=== PATIENT | male | born 1955 | race American Indian/Alaskan Native ===

== ENCOUNTER 2016-09-28 10:29 | Inpatient (IN) ==
[2016-08-25 16:48] LABS: Basophils # (Auto) 0 K/mcL (0.0-0.3); Basophils % (Auto) 0.4 % (0.0-2.0); Eosinophils # (Auto) 0.1 K/mcL (0.0-0.7); Eosinophils % (Auto) 1.1 % (0.0-7.0); Granulocytes % (Auto) 73.4 % (38.0-78.0); Lymphocytes # (Auto) 1.7 K/mcL (1.5-4.8); Lymphocytes % (Auto) 19.3 % (15.5-49.0); Mean Cell Volume 87.5 fL (80.0-100.0); Mean Corpuscular HGB Conc 32.9 g/dL (31.0-36.0); Mean Corpuscular Hemoglobin 28.7 pg (26.0-34.0); Monocytes # (Auto) 0.5 K/mcL (0.1-0.9); Monocytes % (Auto) 5.8 % (1.0-12.0); Platelet Count 255 K/mcL (140-440); RBC 5.49 M/mcL (4.50-5.90); Red Cell Distribution Width 14.8 % (11.5-14.5)
[2016-08-25 17:01] LABS: Blood Urea Nitrogen 15 mg/dl (6-20)
[2016-08-25 18:50] LABS: Appearance,Urine CLEAR; Bilirubin,Urine NEG (NEG); Color,Urine YELLOW; Glucose,Urine (UA) NEGATIVE (NEG); Leukocyte Esterase,Urine NEG /uL (NEG); Nitrate,Urine NEG (NEG); Protein,Urine NEG (NEG); Specific Gravity,Urine 1.017 (1.000-1.035); Urine Blood NEG mg/dL (<0.03); Urobilinogen,Urine NEG (NEG)
[2016-09-22 12:26] LABS: Basophils # (Auto) 0 K/mcL (0.0-0.3); Basophils % (Auto) 0.5 % (0.0-2.0); Eosinophils # (Auto) 0.1 K/mcL (0.0-0.7); Eosinophils % (Auto) 0.7 % (0.0-7.0); Granulocytes % (Auto) 73.7 % (38.0-78.0); Lymphocytes # (Auto) 1.4 K/mcL (1.5-4.8); Lymphocytes % (Auto) 19.1 % (15.5-49.0); Mean Cell Volume 87.6 fL (80.0-100.0); Mean Corpuscular HGB Conc 33.4 g/dL (31.0-36.0); Mean Corpuscular Hemoglobin 29.2 pg (26.0-34.0); Monocytes # (Auto) 0.4 K/mcL (0.1-0.9); Platelet Count 253 K/mcL (140-440); RBC 5.68 M/mcL (4.50-5.90)
[2016-09-22 12:46] LABS: Appearance,Urine CLEAR; Bilirubin,Urine NEG (NEG); Color,Urine YELLOW; Glucose,Urine (UA) NEGATIVE (NEG); Leukocyte Esterase,Urine NEG /uL (NEG); Nitrate,Urine NEG (NEG); Protein,Urine NEG (NEG); Specific Gravity,Urine 1.008 (1.000-1.035); Urine Blood NEG mg/dL (<0.03); Urobilinogen,Urine NEG (NEG)
[2016-09-22 13:01] LABS: Blood Urea Nitrogen 10 mg/dl (6-20)
[~2016-09-28 10:29] MED LIST: CELECOXIB 200 MG CAPSULE PO SCH; KETOROLAC 30 MG, ROPIVACAINE HCL/PF 49.5 ML, EPINEPHrine 0.5 MG, 0.9 % SODIUM CHLORIDE ... IJ ONE; PREGABALIN 75 MG CAPSULE PO SCH; oxyCODONE 10 MG TAB.ER.12H PO SCH
[2016-09-28] MEDS ORDERED: 0.9 % SODIUM CHLORIDE 250 ML IV SCH (10:45)
[2016-09-28] MEDS ORDERED: ceFAZolin 1 GM VIAL IV SCH (13:30)
[2016-09-28] MEDS ORDERED: LIDOCAINE HCL/PF 100 MG/5 ML SYRINGE IV ONE (13:55)
[2016-09-28] MEDS ORDERED: GLYCOPYRROLATE 0.2 MG/ML VIAL IV ONE (13:55)
[2016-09-28] MEDS ORDERED: MIDAZOLAM 5 MG/5 ML VIAL IV ONE (13:55)
[2016-09-28] MEDS ORDERED: PHENYLEPHRINE 10 MG/ML VIAL IV ONE (13:55)
[2016-09-28] MEDS ORDERED: ONDANSETRON 4 MG/2 ML VIAL IV ONE (13:55)
[2016-09-28] MEDS ORDERED: ePHEDrine 50 MG/ML AMPUL IV ONE (13:55)
[2016-09-28] MEDS ORDERED: TRANEXAMIC ACID 1,000 MG/10 ML VIAL IV ONE (13:55)
[2016-09-28] MEDS ORDERED: PROPOFOL 200 MG/20 ML VIAL IV ONE (13:55)
[2016-09-28] MEDS ORDERED: ROPIVACAINE HCL/PF 30 ML VIAL IJ ONE (13:55)
[2016-09-28] MEDS ORDERED: DEXAMETHASONE 10 MG/ML VIAL IV ONE (13:55)
[2016-09-28] MEDS ORDERED: KETOROLAC 30 MG, ROPIVACAINE HCL/PF 49.5 ML, EPINEPHrine 0.5 MG, 0.9 % SODIUM CHLORIDE ... IJ ONE (15:02)
[2016-09-28] MEDS ORDERED: ePHEDrine 50 MG/ML AMPUL IV PRN (15:22)
[2016-09-28] MEDS ORDERED: NALOXONE HCL 0.4 MG/ML VIAL IV PRN (15:22)
[2016-09-28] MEDS ORDERED: METHOCARBAMOL 1,000 MG/10 ML VIAL IV PRN (15:22)
[2016-09-28] MEDS ORDERED: MEPERIDINE 50 MG/ML SYRINGE IM PRN (15:22)
[2016-09-28] MEDS ORDERED: FLUMAZENIL 0.1 MG/ML ML IV PRN (15:22)
[2016-09-28] MEDS ORDERED: PROMETHAZINE 25 MG/ML VIAL IV PRN (15:22)
[2016-09-28] MEDS ORDERED: BENZOCAINE/MENTHOL 1 LOZENGE PO PRN ×2 (15:22→16:03)
[2016-09-28] MEDS ORDERED: MEPERIDINE 25 MG/ML SYRINGE IV PRN (15:22)
[2016-09-28] MEDS ORDERED: fentaNYL 100 MCG/2 ML VIAL IV PRN (15:22)
[2016-09-28] MEDS ORDERED: IPRATROPIUM/ALBUTEROL 3 ML AMPUL.NEB NEB PRN (15:22)
[2016-09-28] MEDS ORDERED: LACTATED RINGERS 250 ML IV PRN (15:22)
[2016-09-28] MEDS ORDERED: HYDROmorphone 2 MG/ML SYRINGE IV PRN (15:22)
[2016-09-28] MEDS ORDERED: diphenhydrAMINE 50 MG/ML VIAL IV PRN (15:22)
[2016-09-28] MEDS ORDERED: ONDANSETRON 4 MG/2 ML VIAL IV PRN ×2 (15:22→16:03)
[2016-09-28] MEDS ORDERED: PROMETHAZINE 25 MG/ML VIAL IM PRN (15:22)
[2016-09-28] MEDS ORDERED: LACTATED RINGERS 1,000 ML IV SCH (15:30)
[2016-09-28] MEDS ORDERED: POLYETHYLENE GLYCOL 3350 17 GM PACKET PO PRN (16:03)
[2016-09-28] MEDS ORDERED: MAGNESIUM HYDROXIDE 30 ML ORAL.SUSP PO PRN (16:03)
[2016-09-28] MEDS ORDERED: FLEETS ADULT ENEMA PR PRN (16:03)
[2016-09-28] MEDS ORDERED: TRANEXAMIC ACID 1,000 MG/10 ML VIAL IV SCH (16:03)
[2016-09-28] MEDS ORDERED: BISACODYL 10 MG SUPP.RECT PR PRN (16:03)
--- NOTE | 2016-09-28 16:03 | Brief Operative Note ---
Date of procedure: 09/28/16 Pre-op diagnosis: Left knee DJD Post-op diagnosis: same Procedure: Robotic assisted total knee arthroplasty Grafts/Implants: Yes (Sean 7 CR femur, 6 tibia, 9mm tibial insert, 39 patella ) Anesthesia: spinal, GLMA Findings: severe DJD Complications: none Surgeon: Waqas Harris Deputy Sheriff/Investigator: Pratik Hernandez Estimated blood loss (cc): 30 Specimens Removed/Pathology: none sent Condition: stable Disposition: PACU
--- NOTE | 2016-09-28 17:20 | XRay Report ---
HISTORY: Reason for Exam:Post-op total knee FINDINGS: There is a well-positioned total knee prosthesis. Lateral view reveals a 3 x 6 mm bone chip posterior to the prosthetic tibial plateau. There also appears to be a nondisplaced fracture line seen on the lateral film involving the posterior margin of the metaphyseal region of the femur. This cannot be confirmed on the AP view.. IMPRESSION: Possible fracture along the posterior metaphyseal border of the distal femur Interpreted and Authenticated by: Reynold Cutler 09/28/16
[2016-09-28] MEDS: KETOROLAC 30 MG/ML VIAL IV SCH ×2 (18:12→23:45)
[2016-09-28] MEDS: 0.9 % SODIUM CHLORIDE 1,000 ML IV SCH (18:12)
[2016-09-28] MEDS: HYDROcodone/APAP 10/325MG TABLET PO PRN ×2 (18:27→20:46)
[2016-09-28] MEDS: DOCUSATE SODIUM 100 MG CAPSULE PO SCH (20:42)
[2016-09-28] MEDS: ASPIRIN 325 MG ENTERIC COATED TABLET PO SCH (20:42)
[2016-09-28] MEDS: ceFAZolin 1 GM VIAL IV SCH (20:46)
[2016-09-28] MEDS: 0.9 % SODIUM CHLORIDE 10 ML SYRINGE IV SCH (20:56)
[2016-09-28] MEDS ORDERED: ATORVASTATIN 20 MG TABLET PO SCH (21:00)
[2016-09-28] MEDS ORDERED: SENNOSIDES 1 TABLET PO SCH (21:00)
[2016-09-29] MEDS: 0.9 % SODIUM CHLORIDE 1,000 ML IV SCH ×2 (00:11→08:16)
[2016-09-29] MEDS: ceFAZolin 1 GM VIAL IV SCH (04:50)
[2016-09-29] MEDS: HYDROcodone/APAP 10/325MG TABLET PO PRN ×2 (04:51→08:14)
[2016-09-29] MEDS: KETOROLAC 30 MG/ML VIAL IV SCH (05:42)
[2016-09-29] MEDS: 0.9 % SODIUM CHLORIDE 10 ML SYRINGE IV SCH (05:43)
--- NOTE | 2016-09-29 07:46 | Discharge Summary ---
Ortho Discharge - TKA - Patient Instructions Diet: Regular Diet Activity: activity as tolerated, weight bearing as tolerated Total Knee Protocol: For Total Knee: Start ROM BOB with stationary bike or rocking chair. Work on gaining full extension of knee. Posterior dislocation precautions provided. Hip abductor strengthening and gait training instructions provided. Apply Cryocuff as instructed. Dressing Care: Aquacel Ag - leave on for 5 days Patient Education: Total Knee Replacement (DC) Additional Instructions: Discharge Instructions: Do the exercises at home that physical therapy gave you. Take your prescription, photo ID, insurance cards, and current medication list with you to your first physical therapy appointment. Take your prescription to [facility] any medication or equipment (such as walker, crutches, toilet riser or C.P.M.) Wear comfortable clothing for your physical therapy. Weight bearing as tolerated. You have the Aquacel Ag dressing, leave in place for 7 days then remove. If dressing becomes soiled (turns black), remove and use gauze 4x4 dressing and silvasorb ointment and change daily. Keep incision clean and dry. You may start showering on post op day #2. To avoid constipation while taking any narcotic pain medication, take an over the counter stool softener/laxative. Use your Cryocuff or ice packs as directed, on for 20 minutes at a time throughout the day. This and elevation will help with pain and swelling. Call your physician for fevers above 100.5 or pain not controlled by medication. Your prescriptions are with your discharge information. Some medications were electronically transmitted to your pharmacy of choice. - Follow Up Plan Follow Up Appointments: Waqas Harris MD [Physician] - 10/13/16 10:40 am Disposition: Home, Self-Care Prognosis: Good Rehab Potential: Good - Orders For Discharge Additional Discharge Orders: Physical Therapy at Discharge - TKA Location: Determined By Patient Toilet Riser Discharge Order Location: Determined By Patient Walker Location: Determined By Patient
--- NOTE | 2016-09-29 08:38 | Orthopedic Progress Note ---
Subjective Patient information: Note initiated : 09/29/16 at 8:36 am Service Date, if different from initiated Date: [] Patient: Jose Lira 61 y/o M admitted on 09/28/16 for Left Medial Uni Knee versus Bicompartmental. Chief Complaint: [] Principal diagnosis: s/p L TKA Interval history: pain controlled on po's Objective Vital signs: Vital Signs Temp Pulse Pulse Pulse Resp BP BP 09/29/16 08:05 80 09/29/16 07:10 80 09/29/16 06:36 96.3 F L 20 107/71 09/29/16 03:29 98.3 F 82 12 109/74 09/28/16 23:36 97.6 F 99 H 12 123/85 09/28/16 20:29 93 H 129/88 09/28/16 19:29 93 H 125/90 09/28/16 18:59 91 H 128/84 09/28/16 18:45 09/28/16 18:29 84 149/75 09/28/16 18:14 77 136/83 09/28/16 17:59 72 135/82 09/28/16 17:25 97.2 F 71 16 147/87 09/28/16 17:03 97.1 F 69 20 133/86 09/28/16 16:57 69 15 116/76 09/28/16 16:45 79 20 124/68 09/28/16 16:35 75 19 115/72 09/28/16 16:30 72 18 116/79 09/28/16 16:25 70 19 119/75 09/28/16 16:23 97.6 F 74 20 119/75 09/28/16 10:30 98.0 F 70 16 165/102 Pulse Ox 09/29/16 08:05 09/29/16 07:10 95 09/29/16 06:36 93 09/29/16 03:29 92 09/28/16 23:36 94 09/28/16 20:29 93 09/28/16 19:29 95 09/28/16 18:59 95 09/28/16 18:45 93 09/28/16 18:29 94 09/28/16 18:14 94 09/28/16 17:59 96 09/28/16 17:25 95 09/28/16 17:03 96 09/28/16 16:57 96 09/28/16 16:45 94 09/28/16 16:35 94 09/28/16 16:30 96 09/28/16 16:25 96 09/28/16 16:23 93 09/28/16 10:30 97 Intake and Output 09/28/16 09/29/16 09/29/16 21:59 05:59 13:59 Intake Total 2180 / 2180 1000 / 1000 600 / 600 Output Total 1300 / 1300 975 / 975 Balance 880 / 880 25 / 25 600 / 600 Intake: IV 1700 / 1700 Oral 480 / 480 1000 / 1000 600 / 600 Output: Urine Catheter Amount 700 / 700 Void Amount 500 / 500 975 / 975 Estimated Blood Loss 100 / 100 Other: Weight 250 lb Intake & Output: Intake & Output 09/28/16 09/29/16 09/29/16 21:59 05:59 13:59 Intake Total 2180 / 2180 1000 / 1000 600 / 600 Output Total 1300 / 1300 975 / 975 Balance 880 / 880 25 / 25 600 / 600 Weight 250 lb Intake: IV 1700 / 1700 Oral 480 / 480 1000 / 1000 600 / 600 Output: Urine Catheter Amount 700 / 700 Void Amount 500 / 500 975 / 975 Estimated Blood Loss 100 / 100 Dressing: Yes clean, Yes dry, Yes intact - Labs CBC & BMP: 09/29/16 05:12 09/22/16 10:45 Labs: Orthopedic Labs 09/22/16 08/25/16 10:45 15:15 PT 13.1 13.3 INR 1.0 1.0 09/29/16 09/22/16 08/25/16 05:12 10:45 15:15 Hgb 13.5 16.6 H 15.8 Hct 39.9 L 49.7 48.0 Assessment and Plan (1) S/P total knee arthroplasty POD#1 s/p L TKA- stable -d/c home Status: Acute
[2016-09-29] MEDS: ASPIRIN 325 MG ENTERIC COATED TABLET PO SCH (08:51)
[2016-09-29] MEDS: DOCUSATE SODIUM 100 MG CAPSULE PO SCH (08:52)
--- NOTE | 2016-09-29 09:44 | Operative Note ---
DATE OF OPERATION: 09/28/2016 PREOPERATIVE DIAGNOSIS: Left knee severe osteoarthritis. POSTOPERATIVE DIAGNOSIS: Left knee severe osteoarthritis. PROCEDURE PERFORMED: Left robotic-assisted total knee arthroplasty placing a Sean Triathlon size 7 cruciate retaining femoral component, a size 6 tibial baseplate, a 9 mm X3 tibial insert with a 39 mm patellar button. SURGEON: Waqas Harris MD. POWERHOUSE MECHANIC APPRENTICE: Josh Hernandez PA-C. ANESTHESIA: Spinal plus general. DRAINS: None. SPECIMENS: Bone cuts, which were discarded. BLOOD LOSS: 30 mL. COMPLICATIONS: None. POSTOPERATIVE CONDITION: Stable. INDICATIONS FOR SURGERY: This is a 61-year-old male who has had worsening knee pain to the point of being severe. This was no longer controlled with conservative management and was inhibiting his quality of life. X-rays showed severe [id number] medial compartment osteoarthritis. FINDINGS AT SURGERY: As above. Post implantation showed good limb alignment, patellar tracking, and stability. PROCEDURE IN DETAIL: The patient had been seen preoperatively. Informed consent had been obtained after discussion of risks and benefits of surgery. Risks including, but not limited to, bleeding, possibly requiring transfusion; infection, possibly requiring implant removal and prolonged IV antibiotics; injury to nerves, blood vessels, and other surrounding structures; anesthetic risks; incomplete or no resolution of symptoms; stiffness; pain; clunking; instability; swelling; DVT and pulmonary embolus risks; and the possibility of needing further surgery. He understood these risks and wished to proceed. Correct operative site was marked, and the patient was given spinal anesthesia. He was then taken to the operating room and LMA general given. Left lower extremity was then carefully prepped and draped in normal sterile fashion, and a time-out was performed verifying patient name, operative site, and plan. Esmarch was used to exsanguinate the extremity and tourniquet was inflated to 300 mmHg. A midline incision was made with a scalpel through skin and subcutaneous tissue. Irrisept was irrigated and then a medial parapatellar arthrotomy made. Subperiosteal exposure was done of the anterior medial tibia and the distal anterior cortex of the femur. The retropatellar fat pad was excised. ACL was transected, and the anterior horns of the menisci were removed. Stab incisions were made over the femur and tibia, and drill pins were placed bicortically, two in the femur and two in the tibia, and then our arrays were connected to these. We then checked our hip center of rotation and then medial and lateral malleoli where checked with the green probe. We then placed and double-checked our femoral and tibial check points. We then used the blue probe to do our data points on the femur and tibia. Once this was completed, we then removed osteophytes. We then checked our flexion and extension gaps, then adjusted implants. We had tried to do an extensive MCL release around the corner of the proximal tibia, but we still required 1 degree of varus in the tibia and 3 degrees of varus overall alignment on the femur. Once we had our flexion and extension gaps balanced, we went ahead and used the robotic-assisted saw to make our femoral and tibial cuts. Once this was completed, we used the green probe to identify our external rotation. This size 6 tibia was chosen due to an area anterolaterally that did not have good bone coverage with the 7. We went ahead and marked our external rotation and then placed our 6 tibial trial, pinning this into place and then using a boss reamer and keel punch to prepare. We then elevated the femur and removed posterior osteophytes with a curved osteotome and curet. We then placed the femoral trial, trying to place this flush with the anterolateral part of the femur. This was pinned into place and then the peg holes were drilled. We then placed a 9 insert. The knee was taken into extension. It measured 0 degrees on extension with the robot. We then prepared our patella freehand technique. It initially measured at 28 and after resection we had it down to 18. We then measured him to a 39, which was medialized and holes were drilled. The patellar trial was placed. A lateral facetectomy was performed. We checked our patellar tracking. There was some tilt, and so we did go ahead and do a lateral retinacular release, starting at the superior pole of patella about 1 cm lateral and extending this distal to the joint line. After this, the patella tracked much better. We then went ahead and removed trial implants while definitive implants were opened. We irrigated the tibia and femur with Irrisept. After waiting a minute, we pulse lavaged copiously with saline and antibiotic cement was used to cement the tibia followed by the femur. A 9 insert trial was placed. The knee was taken into extension and the patellar button was cemented. We did use CO2 gun to clean and dry all the cancellous surfaces. While the knee was held in extension, we filled the knee with Irrisept and then injected pain cocktail in the pericapsular and subcutaneous tissues. After waiting a minute we then pulse lavaged copiously with saline while cement hardened. Once it was fully hardened, we flexed the knee up and with an osteotome removed any remaining cement. We did remove the tibial trial. We injected the posterior medial capsule with pain cocktail and then irrigated Irrisept and then impacted the definitive insert. The joint was filled again with Irrisept and taken into 45 degrees flexion. Interrupted #2 FiberWire [id number] were used at the superior quadrant of the patella. The inferior quadrant was closed with interrupted #1 Vicryl [id number]. Running #1 Vicryl was used for patellar tendon and quad tendon, and then Irrisept was used for another irrigation. After a minute we used saline to pulse lavage, and then 2-0 Monocryl was used for subcutaneous and francisca for skin. Xeroform and sterile dressing were applied. Tourniquet was released. The patient was awakened, extubated, and transferred to recovery in stable condition. MELVIN:freddie Job ID: [id number] Doc ID: [id number] Waqas Harris MD
== END 2016-09-29 10:30 | disposition home or self-care (01) | DRG 470 ==
LOC: SUR 10:29 → MEDSUR 17:12
PROVIDERS: ADMIT Orthopaedic Surgery; ATTEND Orthopaedic Surgery

== ENCOUNTER 2019-01-07 06:40 | Inpatient (IN) ==
[2019-01-01 17:15] LABS: Appearance,Urine CLEAR; Bacteria,Urine 0 /hpf (0); Bilirubin,Urine NEG (NEG); Color,Urine YELLOW; Glucose,Urine (UA) NEGATIVE (NEG); Ketones,Urine NEG (NEG); Leukocyte Esterase,Urine NEG /uL (NEG); Mucus,Urine MANY /hpf (0); Nitrate,Urine NEG (NEG); Protein,Urine 30 mg/dL (NEG); Specific Gravity,Urine 1.026 (1.000-1.035); Urine Blood NEG mg/dL (<0.03); Urine Hyaline Cast 5 /lpf (0-2); Urine RBC 1 /hpf (0-1); Urine Squamous Epithelial Cell < 1 /hpf (0-4); Urine WBC 2 /hpf (0-4)
[2019-01-01 20:05] LABS: Basophils # (Auto) 0.1 K/mcL (0.0-0.3); Basophils % (Auto) 0.4 % (0.0-2.0); Eosinophils # (Auto) 0 K/mcL (0.0-0.7); Eosinophils % (Auto) 0.1 % (0.0-7.0); Granulocytes % (Auto) 82.3 % (38.0-78.0); Hematocrit 48.4 % (41.0-55.0); Hemoglobin 16.1 g/dL (13.5-16.5); Lymphocytes # (Auto) 1.5 K/mcL (1.5-4.8); Lymphocytes % (Auto) 13.2 % (15.5-49.0); Mean Cell Volume 86.8 fL (80.0-100.0); Mean Corpuscular HGB Conc 33.3 g/dL (31.0-36.0); Mean Platelet Volume 7.5 fL (7.4-10.4); Monocytes # (Auto) 0.4 K/mcL (0.1-0.9); Platelet Count 296 K/mcL (140-440); RBC 5.58 M/mcL (4.50-5.90); Red Cell Distribution Width 15.7 % (11.5-14.5); WBC 11.3 K/mcL (4.5-11.0)
[2019-01-01 20:36] LABS: Blood Urea Nitrogen 16 mg/dl (8-23); Calcium 9.5 mg/dl (8.6-10.4); Carbon Dioxide 23 mmol/L (22-30); Chloride 102 mmol/L (96-108); Glomerular Filtration Rate 80; Glucose 134 mg/dL (70-105)
[~2019-01-07 06:40] MED LIST changes: +0.9 % SODIUM CHLORIDE 9 ML, KETOROLAC 30 MG, ROPIVACAINE HCL/PF 49.5 ML, EPINEPHrine 0.... IJ SCH; +ACETAMINOPHEN 500 MG TABLET PO SCH; +IPRATROPIUM/ALBUTEROL 3 ML AMPUL.NEB NEB PRN; -KETOROLAC 30 MG, ROPIVACAINE HCL/PF 49.5 ML, EPINEPHrine 0.5 MG, 0.9 % SODIUM CHLORIDE ... IJ ONE; +SCOPOLAMINE 1 PATCH PATCH TOPICAL PRN; +ceFAZolin 2 GM in DEXTROSE 5% IN WATER 50 ML IV SCH
[2019-01-07] MEDS ORDERED: fentaNYL 100 MCG/2 ML VIAL IV ONE (08:50)
[2019-01-07] MEDS ORDERED: ePHEDrine 50 MG/ML AMPUL IV ONE (08:50)
[2019-01-07] MEDS ORDERED: PHENYLEPHRINE 10 MG/ML VIAL IV ONE (08:50)
[2019-01-07] MEDS ORDERED: DEXAMETHASONE 10 MG/ML VIAL IV ONE (08:50)
[2019-01-07] MEDS ORDERED: PROPOFOL 200 MG/20 ML VIAL IV ONE (08:50)
[2019-01-07] MEDS ORDERED: ONDANSETRON 4 MG/2 ML VIAL IV ONE (08:50)
[2019-01-07] MEDS ORDERED: LIDOCAINE HCL/PF 100 MG/5 ML SYRINGE IV ONE (08:50)
[2019-01-07] MEDS ORDERED: TRANEXAMIC ACID 1,000 MG/10 ML VIAL IV ONE ×2 (08:50→09:48)
[2019-01-07] MEDS ORDERED: MIDAZOLAM 5 MG/5 ML VIAL IV ONE (08:50)
[2019-01-07] MEDS ORDERED: ROPIVACAINE HCL/PF 20 ML VIAL IJ ONE (08:50)
[2019-01-07] MEDS ORDERED: GENTAMICIN SULFATE 800 MG/20 ML VIAL IR ONE (09:19)
[2019-01-07] MEDS ORDERED: diphenhydrAMINE 50 MG/ML VIAL IV PRN (09:29)
[2019-01-07] MEDS ORDERED: PROMETHAZINE 25 MG/ML VIAL IV PRN (09:29)
[2019-01-07] MEDS ORDERED: MEPERIDINE 25 MG/ML SYRINGE IV PRN (09:29)
[2019-01-07] MEDS ORDERED: ONDANSETRON 4 MG/2 ML VIAL IV PRN ×2 (09:29→09:48)
[2019-01-07] MEDS ORDERED: NALOXONE HCL 0.4 MG/ML VIAL IV PRN (09:29)
[2019-01-07] MEDS ORDERED: ePHEDrine 50 MG/ML AMPUL IV PRN (09:29)
[2019-01-07] MEDS ORDERED: fentaNYL 100 MCG/2 ML VIAL IV PRN (09:29)
[2019-01-07] MEDS ORDERED: METHOCARBAMOL 1,000 MG/10 ML VIAL IV PRN (09:29)
[2019-01-07] MEDS ORDERED: ATROPINE SULFATE 0.4 MG/ML VIAL IV PRN (09:29)
[2019-01-07] MEDS ORDERED: METOPROLOL TARTRATE 5 MG/5 ML VIAL IV PRN (09:29)
[2019-01-07] MEDS ORDERED: IPRATROPIUM/ALBUTEROL 3 ML AMPUL.NEB NEB PRN (09:29)
[2019-01-07] MEDS ORDERED: FLUMAZENIL 0.1 MG/ML ML IV PRN (09:29)
[2019-01-07] MEDS ORDERED: HYDROmorphone 2 MG/ML VIAL IV PRN ×2 (09:29→09:48)
[2019-01-07] MEDS ORDERED: LACTATED RINGERS 1,000 ML IV SCH (09:30)
[2019-01-07] MEDS ORDERED: HYDROcodone/APAP 10/325MG TABLET PO PRN (09:48)
[2019-01-07] MEDS ORDERED: BENZOCAINE/MENTHOL 1 LOZENGE PO PRN (09:48)
[2019-01-07] MEDS ORDERED: ACETAMINOPHEN 325 MG TABLET PO PRN (09:48)
[2019-01-07] MEDS ORDERED: MAGNESIUM HYDROXIDE 30 ML ORAL.SUSP PO PRN (09:48)
[2019-01-07] MEDS ORDERED: BISACODYL 10 MG SUPP.RECT PR PRN (09:48)
[2019-01-07] MEDS ORDERED: POLYETHYLENE GLYCOL 3350 17 GM PACKET PO PRN (09:48)
[2019-01-07] MEDS ORDERED: FLEETS ADULT ENEMA PR PRN (09:48)
[2019-01-07] MEDS ORDERED: TEMAZEPAM 15 MG CAPSULE PO PRN (09:48)
--- NOTE | 2019-01-07 09:48 | Brief Operative Note ---
Date of procedure: 01/07/19 Pre-op diagnosis: Left knee loosened ligaments Post-op diagnosis: same Procedure: left tka revision one component and spur removal Grafts/Implants: Yes Anesthesia: BENJA Surgeon: Ted Foreman Custodial Officer: Rufino Mendez Estimated blood loss (cc): 50 Tourniquet Time (Minutes): 22 Specimens Removed/Pathology: none sent Condition: stable Disposition: PACU
[2019-01-07] MEDS ORDERED: LIDOCAINE topical PRN (09:51)
--- NOTE | 2019-01-07 10:39 | XRay Report ---
CLINICAL INFORMATION: Post-Op Total Knee COMPARISON: None. FINDINGS: Total knee prostheses is anatomically aligned. No osseous abnormality. Soft tissue swelling - as expected. IMPRESSION: Negative Interpreted and Authenticated by: Gunnar Contreras 01/07/19
--- NOTE | 2019-01-07 10:48 | Operative Note ---
DATE OF OPERATION: 01/07/2019 PREOPERATIVE DIAGNOSIS: Loosening of the ligaments of his left total knee arthroplasty with a posterolateral spur. POSTOPERATIVE DIAGNOSIS: Loosening of the ligaments of his left total knee arthroplasty with a posterolateral spur. PROCEDURE: Left total knee revision with spur removal in 1 component revision of the poly liner from a size 9 to a size 11 deep dish. SURGEON: Ted Foreman MD GENETICS TEACHER: Rufino Mendez PA-C. This provider's expertise and technical skill were required throughout the case. The JOSIE assisted with preoperative coordination, intraoperative retraction, wound closure, dressing and splint application, as well as postoperative documentation and care coordination. ANESTHESIA: General LMA. COMPLICATIONS: None. DESCRIPTION OF PROCEDURE: The patient was brought to the operating room and put to sleep with general LMA anesthesia. Once asleep, the patient had the left leg confirmed as the operative site by initials, consent form and x-rays. Once this was done, we were able to place Ioban over the skin and inflated the tourniquet to 250 pounds of pressure and then made a midline incision through his prior scar. This gave good exposure. We elevated the subcutaneous tissues and released the vastus medialis medially, opened the capsule and we were able to remove some synovitis within the joint. No obvious infection was discovered and at this point we were able to remove the old poly and there was about 3 mm of play either side of the knee when stressing the knee in extension and flexion. With this kind of looseness we proceeded with our plan which included increasing the thickness of the poly liner 2 mm and stabilizing the knee with a deep dish as well as removing a posterolateral spur. Once the liner was removed we were able to identify a posterolateral spur that was removed using a curved osteotome. This was obviously impinging on the posterior aspect of the plate and this was removed and using a curet, we were able to remove this from the posterolateral aspect. We injected the area with post-inject formula for soft tissue pain control and then placed an 11 mm thick deep dish poly liner, which was 2 mm thicker than the prior liner. This made the knee very stable with no play medially or laterally. We irrigated thoroughly and then put in the final implant. We then closed the mid vastus approach with #1 Stratafix x2 sutures. We closed the skin with 2-0 Vicryl and 3-0 Monocryl. The patient tolerated this well. Sterile bandage was applied. Tourniquet deflated at 22 minutes. RBH:elda Job ID: [id number] Doc ID: [id number] Ted Foreman MD
[2019-01-07] MEDS: KETOROLAC 15 MG/ML VIAL IV SCH ×2 (12:14→17:13)
[2019-01-07] MEDS: 0.45 % SODIUM CHLORIDE 1,000 ML IV SCH ×2 (12:14→20:50)
[2019-01-07] MEDS: 0.9 % SODIUM CHLORIDE 10 ML SYRINGE IV SCH ×2 (14:30→20:51)
[2019-01-07] MEDS: ceFAZolin 1 GM VIAL IV SCH (17:14)
[2019-01-07] MEDS: oxyCODONE/APAP 5/325MG TABLET PO PRN (17:22)
[2019-01-07] MEDS: DOCUSATE SODIUM 100 MG CAPSULE PO SCH (20:50)
[2019-01-07] MEDS: ASPIRIN 325 MG ENTERIC COATED TABLET PO SCH (20:51)
[2019-01-07] MEDS ORDERED: SENNOSIDES 1 TABLET PO SCH (21:00)
[2019-01-07] MEDS ORDERED: buPROPion 150 MG TAB.XL.24H PO SCH (21:00)
[2019-01-08] MEDS: ceFAZolin 1 GM VIAL IV SCH (00:35)
[2019-01-08] MEDS: KETOROLAC 15 MG/ML VIAL IV SCH ×2 (00:35→06:23)
[2019-01-08] MEDS: oxyCODONE/APAP 5/325MG TABLET PO PRN ×3 (00:59→09:19)
[2019-01-08] MEDS: 0.45 % SODIUM CHLORIDE 1,000 ML IV SCH (06:39)
--- NOTE | 2019-01-08 07:42 | Orthopedic Progress Note ---
Subjective Patient information: Note initiated : 01/08/19 at 7:41 am Service Date, if different from initiated Date: [] Patient: Jose Lira 63 y/o M admitted on 01/07/19 for Left Robotic Total Knee Arthroplasty Revision. Chief Complaint: [The patient has been educated regarding dressing care, Physical Therapy recommendations, home exercises, restrictions, and follow up appointments. The patient has had all necessary DME prescribed. The patient has remained relatively stable during their hospital course. ] Objective Vital signs: Vital Signs Temp Pulse Resp BP Pulse Ox 01/08/19 03:24 98.7 F 70 22 139/84 96 01/07/19 23:00 98.2 F 73 22 123/80 93 01/07/19 19:02 98.3 F 92 H 24 H 121/81 94 01/07/19 17:45 97.5 F 86 18 152/71 92 01/07/19 17:15 114 H 16 180/105 90 01/07/19 17:07 93 01/07/19 16:45 81 16 165/72 92 01/07/19 16:15 86 16 179/81 92 01/07/19 14:00 95 01/07/19 10:44 97.6 F 83 19 122/90 96 01/07/19 10:40 97.6 F 78 18 122/68 95 01/07/19 10:35 76 23 H 114/74 97 01/07/19 10:30 76 19 109/73 93 01/07/19 10:25 79 20 127/79 96 01/07/19 10:20 80 17 119/71 96 01/07/19 10:13 97.9 F 84 16 118/71 92 Intake and Output 01/07/19 01/08/19 01/08/19 21:59 05:59 13:59 Intake Total 2140 1180 1198 Output Total 950 675 Balance 6412 594 9380 Intake: IV 860 958 Sodium Chloride 0.45% 1,000 ml 860 958 @ 100 mls/hr IV .Q10H [facility] Rx#: [id number] Oral 1280 1180 240 Output: Void Amount 950 675 Other: Meal Lunch Percent of Meal Consumed 100% Urine Appearance Clear Urine Color Dark Yellow Dark Yellow Urine Odor Strong # Voids 1 Weight 266 lb Intake & Output: Intake & Output 09/01/1701/08/19 01/08/19 21:59 05:59 13:59 Intake Total 2140 1180 1198 Output Total 950 675 Balance 7214 715 9922 Weight 266 lb Intake: IV 860 958 Sodium Chloride 0.45% 1,000 ml 860 958 @ 100 mls/hr IV .Q10H [facility] Rx#: [id number] Oral 1280 1180 240 Output: Void Amount 950 675 Other: Meal Lunch Percent of Meal Consumed 100% Urine Appearance Clear Urine Color Dark Yellow Dark Yellow Urine Odor Strong # Voids 1 Incision: Yes healing Incision clean and dry: Yes Dressing: Yes clean Weight bearing status: full Neurological exam IM: Yes motor sensory intact, Yes neurovascular intact Extremities exam IM: Yes Foot pink and warm, Yes neurovascular intact - Labs CBC & BMP: 01/08/19 04:47 01/01/19 14:48 Labs: 01/08/19 01/01/19 04:47 14:49 Hgb 16.1 Hct 41.6 48.4 Assessment and Plan (1) S/P total knee arthroplasty The patient has been educated regarding dressing care, Physical Therapy recommendations, home exercises, restrictions, and follow up appointments. The patient has had all necessary DME prescribed. The patient has remained relatively stable during their hospital course. Leave Dermabond patch intact until followup Status: Acute
--- NOTE | 2019-01-08 07:46 | Discharge Summary ---
Ortho Discharge - TKA - Patient Instructions Diet: Regular Diet Activity: activity as tolerated, weight bearing as tolerated Total Knee Protocol: For Total Knee: Start ROM BOB with stationary bike or rocking chair. Work on gaining full extension of knee. Posterior dislocation precautions provided. Hip abductor strengthening and gait training instructions provided. Apply Cryocuff as instructed. Dressing Care: May shower in 2 days - Problem Maintenance (1) S/P total knee arthroplasty Status: Acute - Follow Up Plan Follow Up Appointments: Rufino Mendez PA-C [Physician Senior Data Developer] - 01/24/19 11:20 am Disposition: Home, Self-Care Prognosis: Good Rehab Potential: Good I certify that the patient requires SNF services: No Overall status at discharge: patient is progressing back to baseline - Orders For Discharge Prescriptions: HYDROcodone/APAP 10/325MG [Kake 10-325Mg] 1 - 2 tab PO Q4H PRN #60 tab PRN Reason: Pain oxyCODONE HCL [Roxicodone] 5 - 10 mg PO Q4HP PRN #60 tab PRN Reason: Pain Additional Discharge Orders: Physical Therapy at Discharge - TKA Location: None Selected Physical Therapy at Discharge - TKA Location: None Selected CPM Discharge Order Location: None Selected Toilet Riser Discharge Order Location: None Selected Toilet Riser Discharge Order Location: None Selected Walker Location: None Selected Walker Location: None Selected
[2019-01-08] MEDS: ASPIRIN 325 MG ENTERIC COATED TABLET PO SCH (08:58)
[2019-01-08] MEDS: DOCUSATE SODIUM 100 MG CAPSULE PO SCH (08:58)
[2019-01-08] MEDS ORDERED: LISINOPRIL 10 MG TABLET PO SCH (09:00)
[2019-01-08] MEDS: 0.9 % SODIUM CHLORIDE 10 ML SYRINGE IV SCH (11:45)
[2019-01-09] MEDS ORDERED: ERGOCALCIFEROL (VITAMIN D2) 50,000 UNIT CAPSULE PO SCH (09:00)
== END 2019-01-08 11:25 | disposition home or self-care (01) | DRG 489 ==
LOC: MEDSUR 06:40
PROVIDERS: ADMIT Orthopaedic Surgery; ATTEND Orthopaedic Surgery